=== PATIENT | female | born 1990 | race Caucasian/White ===

== ENCOUNTER 2017-11-03 17:17 | Emergency (ER) | payer OTHER ==
[~2017-11-03] VITALS: Ht 165.1 cm; Wt 59.0 kg
[2017-11-03 17:32] VITALS: BP 128/96
[2017-11-03] MEDS ORDERED: ACETAMINOPHEN ES 500 MG TABLET ONE (18:54)
[2017-11-03] MEDS ORDERED: ACETAMINOPHEN ES 500 MG TABLET PO ONE (19:00)
== END 2017-11-03 19:10 | disposition home or self-care (01) ==
LOC: EDUNIT# 17:17 → ER 17:28
DX: F19.10 Other psychoactive substance abuse, uncomplicated (principal); L03.113 Cellulitis of right upper limb; F17.200 Nicotine dependence, unspecified, uncomplicated; Z88.8 Allergy status to other drugs, medicaments and biological substances
CPT/HCPCS: 99283; A4606; Z7610

== ENCOUNTER 2018-11-02 15:50 | Emergency (ER) | payer OTHER ==
[~2018-11-02] VITALS: Ht 165.1 cm; Wt 66.2 kg
[2018-11-02 15:58] VITALS: BP 141/89
[2018-11-02] MEDS ORDERED: FAMOTIDINE (20 MG) 20 MG TABLET ONE (16:29)
[2018-11-02] MEDS ORDERED: ONDANSETRON 4 MG TAB.RAPDIS ONE (16:29)
[2018-11-02] MEDS ORDERED: FAMOTIDINE (20 MG) 20 MG TABLET PO ONE (16:30)
[2018-11-02] MEDS ORDERED: ONDANSETRON 4 MG TAB.RAPDIS SL ONE (16:30)
== END 2018-11-02 17:21 | disposition home or self-care (01) ==
LOC: ER 15:55
DX: K21.9 Gastro-esophageal reflux disease without esophagitis (principal); R11.2 Nausea with vomiting, unspecified; F17.200 Nicotine dependence, unspecified, uncomplicated; F12.10 Cannabis abuse, uncomplicated; F19.10 Other psychoactive substance abuse, uncomplicated; Z88.6 Allergy status to analgesic agent
CPT/HCPCS: 84703-TC; Q0162

== ENCOUNTER 2021-04-07 09:14 | Emergency (ER) | payer OTHER ==
[~2021-04-07] VITALS: Ht 165.1 cm; Wt 59.0 kg
--- NOTE | 2021-04-07 09:51 | NUR ---
Patient awake alert Rt wrist and hand pain s/p fall during skateboarding .Radiology @ bedside i place ice pack to site continue to monitor .
[2021-04-07] MEDS ORDERED: IBUP-1957 PO (10:59)
--- NOTE | 2021-04-07 11:30 | NUR ---
Splint applied by WILBUR Antoine. Nail beds pink/able to move finger Patient discharged to home in stable condition. Written and verbal after care instructions given. Patient verbalizes understanding of instruction.
[2021-04-07 12:11] VITALS: BP 120/70
== END 2021-04-07 12:21 | disposition home or self-care (01) ==
LOC: ER 09:18
DX: S52.591A Other fractures of lower end of right radius, initial encounter for closed fracture (principal); S52.691A Other fracture of lower end of right ulna, initial encounter for closed fracture; F12.90 Cannabis use, unspecified, uncomplicated; Z91.048 Other nonmedicinal substance allergy status; V00.131A Fall from skateboard, initial encounter; Y93.51 Activity, roller skating (inline) and skateboarding; Y92.331 Roller skating rink as the place of occurrence of the external cause; Y99.8 Other external cause status
CPT/HCPCS: 73080-TC; 73110

== ENCOUNTER 2021-04-28 13:45 | Emergency (ER) | payer OTHER ==
[~2021-04-28] VITALS: Ht 160 cm; Wt 59.4 kg
[~2021-04-28 13:45] MED LIST: IBUP-1957 PO
[2021-04-28 14:16] VITALS: BP 132/91
--- NOTE | 2021-04-28 14:50 | NUR ---
RADIOLOGY AT BEDSIDE FOR RFA XRAY.
--- NOTE | 2021-04-28 15:54 | NUR ---
CALLED ORTHO DR. THOMPSON SPEAKING WITH DR. FARAH
--- NOTE | 2021-04-28 16:30 | NUR ---
SPLINTING DONE BY CLERK OF COURT.
--- NOTE | 2021-04-28 16:39 | NUR ---
Patient discharged to home in stable condition. Written and verbal after care instructions given. Patient verbalizes understanding of instruction.
== END 2021-04-28 16:40 | disposition home or self-care (01) ==
LOC: ER 13:46
DX: S52.571G Other intraarticular fracture of lower end of right radius, subsequent encounter for closed fracture with delayed healing (principal); S52.691G Other fracture of lower end of right ulna, subsequent encounter for closed fracture with delayed healing; F12.90 Cannabis use, unspecified, uncomplicated; W19.XXXD Unspecified fall, subsequent encounter
CPT/HCPCS: 73110

== ENCOUNTER 2022-06-20 10:02 | Emergency (ER) | payer OTHER ==
[~2022-06-20] VITALS: Ht 165.1 cm; Wt 65.8 kg
--- NOTE | 2022-06-20 10:15 | NUR ---
JAMA 102 FROM HOME FOR OVERDOSE, HX OF HEROIN USE. ER BED 14.
--- NOTE | 2022-06-20 10:17 | NUR ---
PER EMS, PERSON WHO CALLED 911 MOM/NEIGHBOR [phone]
--- NOTE | 2022-06-20 10:52 | NUR ---
URINE COLLECTED AND SENT TO LAB
[2022-06-20] MEDS ORDERED: NALO4SPR BNOSTRILS (12:01)
[2022-06-20 12:14] VITALS: BP 135/84
--- NOTE | 2022-06-20 12:14 | NUR ---
Patient discharged to home in stable condition. Written and verbal after care instructions given. Patient verbalizes understanding of instruction.
== END 2022-06-20 12:14 | disposition home or self-care (01) ==
LOC: ER 10:03
DX: T40.601A Poisoning by unspecified narcotics, accidental (unintentional), initial encounter (principal); F12.90 Cannabis use, unspecified, uncomplicated; Z79.899 Other long term (current) drug therapy; Z88.8 Allergy status to other drugs, medicaments and biological substances; Y92.89 Other specified places as the place of occurrence of the external cause